=== PATIENT | female | born 1940 | race Caucasian/White ===

== ENCOUNTER 2018-02-15 10:00 | Inpatient (IN) | payer OTHER ==
[~2018-02-15] VITALS: Ht 152.4 cm; Wt 72.6 kg
[2018-02-17] MEDS ORDERED: LISINOPRIL-HCT1 EAC2 PO (11:07)
[2018-02-17] MEDS ORDERED: METFORMIN HCL850 MG PO (11:09)
[2018-02-17] MEDS ORDERED: LEVO-T25 MCG PO (11:09)
[2018-02-17] MEDS ORDERED: DIGOX125 MCG PO (11:09)
[2018-02-23] MEDS ORDERED: GABAPENTIN800 MG PO (11:56)
[2018-02-23] MEDS ORDERED: DOCUSATE SODIU100 MG PO (11:56)
[2018-02-23] MEDS ORDERED: PERCOCET 5-3251 EACH PO (11:57)
[2018-02-23] MEDS ORDERED: CLONAZEPAM1 MG PO (11:57)
[2018-02-23] MEDS ORDERED: AMOX-CLAV 875-1 EACH PO (11:57)
== END 2018-02-23 14:42 | DRG 454 ==
LOC: O/R 02-22 05:00 → PED 02-22 05:00 → SURH 02-22 10:00 → PED 02-22 16:01
PROVIDERS: Orthopaedic Surgery Orthopaedic Surgery of the Spine
PROC: 0SG1071 Fusion of 2 or more Lumbar Vertebral Joints with Autologous Tissue Substitute, Posterior Approach, Posterior Column, Open Approach (ICD-10-PCS; 2018-02-22)
PROC: 0ST20ZZ Resection of Lumbar Vertebral Disc, Open Approach (ICD-10-PCS; 2018-02-22)
PROC: 0SG10AJ Fusion of 2 or more Lumbar Vertebral Joints with Interbody Fusion Device, Posterior Approach, Anterior Column, Open Approach (ICD-10-PCS; 2018-02-22)
PROC: 07DS3ZZ Extraction of Vertebral Bone Marrow, Percutaneous Approach (ICD-10-PCS; 2018-02-22)
PROC: 0SG10A0 Fusion of 2 or more Lumbar Vertebral Joints with Interbody Fusion Device, Anterior Approach, Anterior Column, Open Approach (ICD-10-PCS; principal; 2018-02-22 13:00)
DX: M43.16 Spondylolisthesis, lumbar region (principal); M51.06 Intervertebral disc disorders with myelopathy, lumbar region; M48.061 Spinal stenosis, lumbar region without neurogenic claudication; M41.56 Other secondary scoliosis, lumbar region; I10 Essential (primary) hypertension; E03.8 Other specified hypothyroidism; E11.9 Type 2 diabetes mellitus without complications

== ENCOUNTER → 2021-03-04 08:00 | Outpatient (CLI) | payer OTHER ==
[~2021-03-04] VITALS: Ht 152.4 cm; Wt 78.0 kg
[~2021-03-04 08:00] MED LIST: AMOX-CLAV 875-1 EACH PO; CLONAZEPAM1 MG PO; COLACE100 MG PO; DIAZEPAM5 MG PO; DIGOX125 MCG PO; DOCUSATE SODIU100 MG PO; GABAPENTIN800 MG PO; GLIPIZIDE XL10 MG PO; LEVO-T25 MCG PO; LISINOPRIL-HCT1 EAC2 PO; MEDROLPACK PO; METFORMIN HCL850 MG PO; NEURONTIN800 MG PO; PERCOCET 5-3251 EACH PO; ZESTORETIC 10-1 EACH PO
== END | disposition home or self-care (01) ==
LOC: LAB 08:00 → SURH 03-10 10:45 → EDSTATUS 03-13 10:45 → SURH 03-13 10:45
PROVIDERS: ATTEND Orthopaedic Surgery Orthopaedic Surgery of the Spine
DX: Z03.818 Encounter for observation for suspected exposure to other biological agents ruled out (principal); M48.062 Spinal stenosis, lumbar region with neurogenic claudication; Z20.828 Contact with and (suspected) exposure to other viral communicable diseases

== ENCOUNTER 2021-04-09 08:15 | Inpatient (IN) | payer OTHER ==
[~2021-04-09] VITALS: Ht 152.4 cm; Wt 76.2 kg
[~2021-04-09 08:15] MED LIST changes: -COLACE100 MG PO; -DIAZEPAM5 MG PO; -MEDROLPACK PO; -NEURONTIN800 MG PO; -ZESTORETIC 10-1 EACH PO
[2021-04-09] MEDS ORDERED: ZESTORETIC 10-1 EACH PO (10:45)
[2021-04-14] MEDS ORDERED: COLACE100 MG PO (07:41)
[2021-04-14] MEDS ORDERED: PERCOCET 5-3251 EACH PO (07:41)
[2021-04-14] MEDS ORDERED: DIAZEPAM5 MG PO (07:41)
[2021-04-14] MEDS ORDERED: NEURONTIN800 MG PO (07:41)
[2021-04-14] MEDS ORDERED: MEDROLPACK PO (07:41)
[2021-04-14] MEDS ORDERED: AMOX-CLAV 875-1 EACH PO (07:41)
== END 2021-04-15 15:53 | disposition home or self-care (01) | DRG 520 ==
LOC: O/R 04-14 05:30 → PED 04-14 05:30 → SURH 04-14 07:00 → PED 04-14 10:15
PROVIDERS: ADMIT Orthopaedic Surgery Orthopaedic Surgery of the Spine; ATTEND Orthopaedic Surgery Orthopaedic Surgery of the Spine
PROC: 01NB0ZZ Release Lumbar Nerve, Open Approach (ICD-10-PCS; 2021-04-14)
PROC: 0SB20ZZ Excision of Lumbar Vertebral Disc, Open Approach (ICD-10-PCS; principal; 2021-04-14 07:00)
DX: M48.062 Spinal stenosis, lumbar region with neurogenic claudication (principal); M54.17 Radiculopathy, lumbosacral region